=== PATIENT | female | born 1960 | race Caucasian/White ===

== ENCOUNTER 2024-01-11 16:09 | Inpatient (IN) | payer BC ==
[2024-01-11 16:51] LABS: BASOPHILS PERCENT AUTO 0.2 % (0.0-1.0); EOSINOPHILS ABSOLUTE AUTO 0.1 K/mm3 (0.0-0.4); HEMATOCRIT 40.3 % (37.0-47.0); HEMOGLOBIN 13.9 gm/dl (12.0-16.0); IMMATURE GRAN ABSOLUTE AUTO 0.03 K/mm3 (0.00-0.05); IMMATURE GRAN PERCENT AUTO 0.3 % (0.0-0.4); LYMPHOCYTES ABSOLUTE AUTO 1.3 K/mm3 (1.0-4.8); LYMPHOCYTES PERCENT AUTO 14.8 % (24.0-44.0); MEAN CORPUSCULAR HEMOGLOBIN 32.3 pg (28.0-32.0); MEAN CORPUSCULAR HGB CONC 34.5 g/dl (32.0-36.0); MEAN CORPUSCULAR VOLUME 93.7 fl (83.0-99.0); MEAN PLATELET VOLUME 9.3 fl (9.4-12.3); MONOCYTES ABSOLUTE AUTO 0.4 K/mm3 (0.0-0.8); NEUTROPHILS ABSOLUTE AUTO 6.9 K/mm3 (1.8-7.7); NEUTROPHILS PERCENT AUTO 78.7 % (41.0-71.0); PLATELET COUNT,PLT 191 K/mm3 (150-400); WHITE BLOOD CELL COUNT,WBC 8.81 K/mm3 (3.9-11.3)
[2024-01-11] MEDS: Sodium Chloride 0.9% 10 ML Syringe FLUSH PRN ×2 (16:55→17:58)
[2024-01-11] MEDS: Prochlorperazine 10 MG/2 ML SDV IVPUSH ONE (17:17)
[2024-01-11] MEDS: diphenhydrAMINE 50 MG/ML SDV IVPUSH ONE (17:17)
[2024-01-11] MEDS: Sodium Chloride 0.9% 1,000 ML IV SCH (17:17)
[2024-01-11 17:21] LABS: A/G RATIO 1.2 (1-2); ALBUMIN 4.2 g/dl (3.4-5.0); ANION GAP 13.7 (5-15); BILIRUBIN TOTAL 0.7 mg/dL (0.2-1.0); BUN/CREATININE RATIO 16.3 (14-18); C-REACTIVE PROTEIN 0.94 mg/dL (<0.30); CREATININE 0.8 mg/dL (0.55-1.02); EST CRCL DRUG DOSING (CG) 57.67 mL/min; POTASSIUM,K 3.7 mEq/L (3.5-5.1); PROTEIN TOTAL,TP 7.6 g/dl (6.4-8.2)
[2024-01-11] MEDS: Iopamidol 612 MG/ML 100 ML Bottle IVPUSH ONE (17:58)
[2024-01-11] MEDS: Alum Hydrox/Mag Hydrox/Simeth 30 ML, Lidocaine 2% 15 ML PO ONE (18:16)
[2024-01-11] MEDS ORDERED: Naloxone 0.4 MG/ML SDV IVPUSH PRN (18:39)
[2024-01-11] MEDS: HYDROmorphone 0.5 MG/0.5 ML Syringe IVPUSH ONE (18:42)
[2024-01-11 18:47] LABS: APPEARANCE,URINE CLEAR (Clear); BILIRUBIN,URINE NEGATIVE (Negative); COLOR,URINE YELLOW (Yellow); GLUCOSE,URINE NEGATIVE (Negative); KETONES,URINE 1+ (Negative); LEUKOCYTE ESTERASE,URINE TRACE (Negative); NITRITE,URINE NEGATIVE (Negative); OCCULT BLOOD,URINE NEGATIVE (Negative); PROTEIN,URINE NEGATIVE (Negative)
[2024-01-11 18:58] LABS: BACTERIA,URINE FEW /hpf (FEW); MUCUS,URINE FEW /hpf (FEW); RBC,URINE 0-5 /hpf (0-5); SQUAMOUS EPITHELIAL CELLS,UR 0-5 /hpf (0-5); WBC,URINE 0-5 /hpf (0-5)
[2024-01-11] MEDS: Lactated Ringers 1,000 ML IV SCH (21:17)
[2024-01-11] MEDS ORDERED: Morphine 2 MG/ML SYRINGE IVPUSH PRN (23:01)
[2024-01-11] MEDS ORDERED: Ondansetron 4 MG/2 ML SDV IVPUSH PRN (23:01)
[2024-01-11] MEDS: Piperacillin/Tazobactam 4.5 GM in Sodium Chloride 0.9% 100 ML IV ONE (23:10)
[2024-01-11] MEDS ORDERED: Piperacillin/Tazobactam 4.5 GM in Sodium Chloride 0.9% 100 ML IV SCH (23:15)
[2024-01-12] MEDS: Piperacillin/Tazobactam 4.5 GM in Sodium Chloride 0.9% 100 ML IV SCH (02:54)
[2024-01-12 05:32] LABS: BASOPHILS PERCENT AUTO 0.1 % (0.0-1.0); EOSINOPHILS PERCENT AUTO 0.1 % (0.0-6.0); HEMATOCRIT 37.9 % (37.0-47.0); HEMOGLOBIN 13.1 gm/dl (12.0-16.0); IMMATURE GRAN ABSOLUTE AUTO 0.03 K/mm3 (0.00-0.05); IMMATURE GRAN PERCENT AUTO 0.3 % (0.0-0.4); LYMPHOCYTES ABSOLUTE AUTO 1.2 K/mm3 (1.0-4.8); MEAN CORPUSCULAR HEMOGLOBIN 31.7 pg (28.0-32.0); MEAN CORPUSCULAR HGB CONC 34.6 g/dl (32.0-36.0); MEAN CORPUSCULAR VOLUME 91.8 fl (83.0-99.0); MEAN PLATELET VOLUME 9.6 fl (9.4-12.3); MONOCYTES ABSOLUTE AUTO 0.6 K/mm3 (0.0-0.8); NEUTROPHILS ABSOLUTE AUTO 8.3 K/mm3 (1.8-7.7); NEUTROPHILS PERCENT AUTO 81.5 % (41.0-71.0); PLATELET COUNT,PLT 177 K/mm3 (150-400); RED BLOOD CELL COUNT 4.13 M/mm3 (4.10-5.30); WHITE BLOOD CELL COUNT,WBC 10.23 K/mm3 (3.9-11.3)
[2024-01-12 05:58] LABS: A/G RATIO 1.1 (1-2); ALBUMIN 3.5 g/dl (3.4-5.0); ANION GAP 10.9 (5-15); BILIRUBIN TOTAL 1.1 mg/dL (0.2-1.0); BUN/CREATININE RATIO 11.3 (14-18); CALCIUM 8.5 mg/dL (8.5-10.1); CREATININE 0.8 mg/dL (0.55-1.02); EST CRCL DRUG DOSING (CG) 57.67 mL/min; POTASSIUM,K 3.9 mEq/L (3.5-5.1); PROTEIN TOTAL,TP 6.8 g/dl (6.4-8.2)
[2024-01-12] MEDS: Sodium Chloride 0.9% 1,000 ML IV SCH (06:35)
[2024-01-12] MEDS: Enoxaparin 40 MG/0.4 ML Syringe SUBCUT SCH (08:55)
[2024-01-12] MEDS ORDERED: fentaNYL 100 MCG/2 ML SDV ONE ×2 (09:46→11:51)
[2024-01-12] MEDS ORDERED: Midazolam 1 MG/ML 2 ML SDV ONE (09:46)
[2024-01-12] MEDS ORDERED: Propofol 200 MG/20 ML SDV ONE (09:47)
[2024-01-12] MEDS ORDERED: Lidocaine 1% 5 ML VIAL ONE (09:48)
[2024-01-12] MEDS ORDERED: Succinylcholine 200 MG/10 ML MDV ONE (09:48)
[2024-01-12] MEDS ORDERED: Ondansetron 4 MG/2 ML SDV ONE (09:48)
[2024-01-12] MEDS ORDERED: Dexamethasone 4 MG/ML 5 ML MDV ONE (09:48)
[2024-01-12] MEDS ORDERED: Rocuronium 50 MG/5 ML Vial ONE ×2 (09:48→11:39)
[2024-01-12] MEDS ORDERED: HYDROmorphone 0.5 MG/0.5 ML Syringe IVPUSH PRN (11:49)
[2024-01-12] MEDS ORDERED: Ondansetron 4 MG/2 ML SDV IVPUSH PRN (11:49)
[2024-01-12] MEDS: EPINEPHrine 1 MG/ML SDV ONE (14:30)
[2024-01-12] MEDS: Lidocaine 1% 30 ML SDV ONE (14:30)
[2024-01-12] MEDS: Bupivacaine 0.5% 30 ML SDV ONE (14:30)
[2024-01-12] MEDS: fentaNYL 100 MCG/2 ML SDV IVPUSH PRN (15:15)
[2024-01-12] MEDS: Acetaminophen 325 MG Tab PO PRN (18:20)
[2024-01-12] MEDS: Sodium Chloride 0.9% 1,000 ML IV ONE (22:08)
[2024-01-13] MEDS: Acetaminophen/HYDROcodone 325-5 MG Tab PO PRN (05:39)
== END 2024-01-13 20:03 | disposition home or self-care (01) | DRG 263 ==
LOC: JD.ED 16:09 → JD.MS 23:01
PROVIDERS: ADMIT Student in an Organized Health Care Education/Training Program; ATTEND Student in an Organized Health Care Education/Training Program
PROC: 0FT44ZZ Resection of Gallbladder, Percutaneous Endoscopic Approach (ICD-10-PCS; principal; 2024-01-12 10:45)
DX: K80.12 Calculus of gallbladder with acute and chronic cholecystitis without obstruction (principal); Z98.891 History of uterine scar from previous surgery; Z98.890 Other specified postprocedural states; Z86.79 Personal history of other diseases of the circulatory system
CPT/HCPCS: 00790; 36415; 74177; 74177-26; 76705; 76705-26; 80053; 81001; 83690; 84484; 85025; 86140; 86850; 86900; 86901; 87070; 87075; 87086; 87205; 93005; 93010; 94762; 96361; 96374; 96375; 99285; 99285-25; A9270-GY; J0171; J0330; J0665; J0780; J1100; J1170; J1200; J1650; J2250; J2405; J2543; J2704; J3010; J3490; J7030; J7120; Q9967